=== PATIENT | male | born 1985 | race Native Hawaiian/Other Pacific Islander ===

== ENCOUNTER 2022-03-04 10:33 | Outpatient (CLI) | payer SELFPAY | END 2022-03-04 10:34 | disposition home or self-care (01) | LOC: NFLDREF 10:34 | PROVIDERS: PCP Family Medicine; Visit Provider Family Medicine | DX: R53.83 Other fatigue (principal) | CPT/HCPCS: 84443 ==

== ENCOUNTER 2023-02-24 20:50 | Emergency (ER) | payer OTHER, SELFPAY ==
[2023-02-24 21:03] VITALS: BP 147/88; PULSE 85; RESP 16; TEMP 36.4; O2SAT 98; BMI 28.3
--- NOTE | 2023-02-24 21:47 | CRLHL7_ITS ---
For Patients: As a result of the Century Cures Act, medical imaging exams and procedure reports are released immediately into your electronic medical record. You may view this report before your referring provider. If you have questions, please contact your health care provider. INDICATION: Right upper quadrant pain. TECHNIQUE: Ultrasound abdomen limited. Sonographic images of the right upper quadrant were obtained using rico-scale and color Doppler images. Permanently recorded images are archived. COMPARISON: None. FINDINGS: Liver: Normal in size. Mild diffuse increased hepatic echogenicity, compatible with hepatic steatosis. Small focus of focal fatty sparing about the gallbladder fossa. No suspicious masses. No intrahepatic biliary dilatation. Gallbladder: Hydropic. No stones or sludge. Normal wall thickness. No pericholecystic fluid. Negative sonographic Colunga`s sign. Common bile duct: Non-dilated measuring 4 mm. Pancreas: Unremarkable. Right kidney: Normal in size. Normal echotexture and cortex. No suspicious masses, stones, or hydronephrosis. Vasculature: Proximal abdominal aorta and IVC are unremarkable. IMPRESSION: Hepatic steatosis. Otherwise, unremarkable right upper quadrant ultrasound Dictated by Omer Seay MD @ 02/24/2023 11:59:46 PM (Electronically Signed)
--- NOTE | 2023-02-24 21:49 | ED_ITS ---
HPI - Abdominal Pain General Time Seen by Provider: 21:49 Date Seen: 02/24/23 Chief Complaint: Abdominal Pain Stated Complaint: R mid abdomen pain Time Seen by Provider: 02/24/23 21:41 Source: patient, RN notes reviewed and old records reviewed Mode of arrival: ambulatory Limitations: no limitations History of Present Illness HPI narrative: 38-year-old male who presents today with right upper quadrant pain. This started about 4 hours prior to coming emergency department just after eating. Nausea without vomiting. No diarrhea, no fever. Pain is mostly resolved now. Took ibuprofen earlier tonight. No prior surgeries, aside similar pain to this in the past but mild. Related Data Home Medications Medication Instructions Recorded Confirmed No Known Home Medications 03/04/22 02/24/23 Allergies Allergy/AdvReac Type Severity Reaction Status Date / Time No Known Allergies Allergy Unknown Verified 02/24/23 21:03 PFSH PFS Social History Smoking Status: Current every day smoker What tobacco products do you use: cigarettes Smoking packs per day: 0.3 Smoking cigarettes per day: 6.0 How often do you have a drink containing alcohol: never AUDIT-C Alcohol total score: 0 Non-prescribed substance use: denies use Exam Narrative: Exam Narrative: General: Well-developed and well-nourished, no acute distress Head: Atraumatic and normocephalic Eyes: Pupils are equal reactive, extraocular motions intact, conjunctiva clear ENT: External nose and ears are normal, posterior pharynx without erythema or exudate Neck: No midline cervical tenderness, full spontaneous range of motion the neck, trachea midline, no adenopathy Heart: Regular rate and rhythm no murmurs or thrills Lungs: Clear to auscultation bilaterally without wheezes or crackles Abdomen: Soft, nontender, nondistended with active bowel sounds Musculoskeletal: No tenderness, deformity, or edema Neurologic: Awake, alert, and oriented x3, no gross focal neurologic deficits, cranial nerves intact as tested Psych: Mood and affect are appropriate Skin: No rashes Const: Vital Signs, click to edit/add: Vital Signs - 24 hr 02/24/23 21:03 Temperature 97.5 F L Pulse Rate [Pulse Oximeter] 85 Respiratory Rate 16 Blood Pressure [Ri ght Upper Arm] 147/88 H Pulse Oximetry 98 Oxygen Delivery Me thod Room Air Course Course ED Course: Patient seen examined, prior records reviewed. Patient presents today with right upper quadrant abdominal pain after eating, feeling better now. Symptoms concerning for biliary colic, as pain is improved, acute cholecystitis less likely. No right lower quadrant tenderness to suggest acute appendicitis. Labs and right upper quadrant ultrasound ordered. If this is negative, patient can be discharged. Consider CT scan if pain returns or marked lab abnormalities on explained by ultrasound. Consider pain medication but as patient is essentially pain-free now with no tenderness will defer. Reevaluation(s) Time of Reevaluation #1: 22:55 Reevaluation #1: Labs ordered and independently interpreted by me demonstrate leukocytosis, reassuring basic panel, normal hepatic panel, normal lipase. Right upper quadrant ultrasound negative for acute cholecystitis or other findings. Patient reexamined, he has no abdominal tenderness. Consider acute appendicitis but patient has no tenderness and is feeling better, discussed risks and benefits of imaging and patient defers. Stable for discharge Vital Signs Vital signs: Initial Vital Signs Temperature 97.5 F L 02/24/23 21:03 Temperature Source Temporal Artery Scan 02/24/23 21:03 Pulse Rate 85 02/24/23 21:03 Respiratory Rate 16 02/24/23 21:03 Blood Pressure 147/88 H 02/24/23 21:03 Blood Pressure Mean 107 H 02/24/23 21:03 Blood Pressure Position Sitting 02/24/23 21:03 Pulse Oximetry 98 02/24/23 21:03 Oxygen Delivery Method Room Air 02/24/23 21:03 Vital Signs Temperature 97.5 F L 02/24/23 21:03 Pulse Rate 85 02/24/23 21:03 Respiratory Rate 16 02/24/23 21:03 Blood Pressure 147/88 H 02/24/23 21:03 Pulse Oximetry 98 02/24/23 21:03 Oxygen Delivery Method Room Air 02/24/23 21:03 Temperature 97.5 F L 02/24/23 21:03 Pulse Rate 85 02/24/23 21:03 Respiratory Rate 16 02/24/23 21:03 Blood Pressure 147/88 H 02/24/23 21:03 Pulse Oximetry 98 02/24/23 21:03 Oxygen Delivery Method Room Air 02/24/23 21:03 MDM - Abdominal Pain Lab Data Labs: Lab Results 02/24/23 Range/Units 22:17 WBC 13.99 H (4.50-11.00) K/uL RBC 5.05 (4.30-5.90) m/uL Hgb 15.9 (13.5-17.5) gm/dL Hct 46.6 (37.0-53.0) % MCV 92 (80-100) fL MCH 32 (26-34) pg MCHC 34 (32-36) gm/dL RDW Coeff of Leni 12.8 (11.5-15.5) % Plt Count 362 (140-440) K/uL Neut % (Auto) 78.6 H (42.0-72.0) % Lymph % (Auto) 13.5 L (20-44) % [place] % (Auto) 6.4 (0.0-11.0) % Eos % (Auto) 0.9 (0.0-7.0) % Baso % (Auto) 0.4 (0.0-3.0) % Neut # (Auto) 11.00 H (1.7-7.0) K/uL Lymph # (Auto) 1.90 (0.90-2.90) K/uL [place] # (Auto) 0.90 (0.00-0.90) K/UL Eos # (Auto) 0.10 (0.00-0.50) K/uL Baso # (Auto) 0.10 (0.00-0.30) K/uL Abs Immat Gran (auto) 0.00 (0.00-0.30) K/uL Imm/Tot Granulo (auto) 0.2 % Sodium 138 (135-149) mmol/L Potassium 3.4 L (3.6-5.1) mmol/L Chloride 103 (96-114) mmol/L Carbon Dioxide 24 (20-32) mmol/L Anion Gap 11 (7-15) mEq/L BUN 18 (5-24) mg/dL Creatinine 0.7 (0.5-1.5) mg/dL Estimated Creat Clear 125.68 Estimated GFR 122 ml/min Glucose 109 (60-115) mg/dL Calcium 9.0 (8.4-10.6) mg/dL Total Bilirubin 0.4 (0.1-1.5) mg/dL Direct Bilirubin 0.0 (0.0-0.5) mg/dL AST 28 (12-35) U/L ALT 31 (4-50) U/L Alkaline Phosphatase 82 (40-150) U/L Total Protein 7.9 (6.0-8.3) g/dL Albumin 4.9 (3.3-5.0) g/dL Lipase 130 (23-300) U/L Discharge Plan Discharge Clinical Impression: Abdominal pain, RUQ Patient Disposition: Home, Self-Care Condition: Stable Instructions: Biliary Colic (ED) Activity Level: No Restrictions Discharge Diet: Regular Prescriptions: No Action No Known Home Medications Follow Up/Referrals: Power Schilling MD [Primary Care Provider] - Stand Alone Forms: [employer] Info Instructions
[2023-02-24 22:30] LABS: Basophils Percent Auto 0.4 % (0.0-3.0); Eosinophils Percent Auto 0.9 % (0.0-7.0); Hematocrit 46.6 % (37.0-53.0); Hemoglobin* 15.9 gm/dL (13.5-17.5); Immature Granulocytes Pct Auto 0.2 %; Lymphocytes Percent Auto 13.5 % (20-44); Mean Corpuscular HGB Conc 34 gm/dL (32-36); Mean Corpuscular Hemoglobin 32 pg (26-34); Mean Corpuscular Volume 92 fL (80-100); Monocytes Percent Auto 6.4 % (0.0-11.0); Neutrophils Percent Auto 78.6 % (42.0-72.0); Platelet Count* 362 K/uL (140-440); RDW Coefficient of Variation % 12.8 % (11.5-15.5); Red Blood Count 5.05 m/uL (4.30-5.90); White Blood Count* 13.99 K/uL (4.50-11.00)
[2023-02-24 22:40] LABS: Albumin* 4.9 g/dL (3.3-5.0)
[2023-02-24 22:41] LABS: Chloride* 103 mmol/L (96-114); Potassium* 3.4 mmol/L (3.6-5.1); Sodium* 138 mmol/L (135-149)
[2023-02-24 22:43] LABS: Anion Gap 11 mEq/L (7-15); Aspartate Amino Transferase* 28 U/L (12-35); Bilirubin Total* 0.4 mg/dL (0.1-1.5); Carbon Dioxide* 24 mmol/L (20-32); Creatinine* 0.7 mg/dL (0.5-1.5); Est. Creatinine Clearance* 125.68; Estimated Glomerular Filt Rate 122 ml/min; Total Protein* 7.9 g/dL (6.0-8.3)
[2023-02-24 22:44] LABS: Alanine Aminotransferase* 31 U/L (4-50); Alkaline Phosphatase* 82 U/L (40-150); Blood Urea Nitrogen* 18 mg/dL (5-24); Glucose* 109 mg/dL (60-115); Lipase* 130 U/L (23-300)
[2023-02-24 22:46] LABS: Slide Review Reflex No
== END 2023-02-24 23:36 | disposition home or self-care (01) ==
PROVIDERS: Emergency Provider Family Medicine; PCP Family Medicine
DX: R10.11 Right upper quadrant pain (principal)
CPT/HCPCS: 36415; 76705; 80048; 80076; 83690; 85025; 95992; 99283; 99284